=== PATIENT | female | born 1970 | race Hispanic/Latino ===

== ENCOUNTER 2017-02-06 13:57 | Emergency (ER) | payer OTHER, BC ==
[2017-02-06 14:01] VITALS: BMI 47.1
[2017-02-06 14:05] VITALS: BP 116/81; PULSE 99; RESP 18; TEMP 98.1; O2SAT 97
--- NOTE | 2017-02-06 14:37 | ED PDOC ---
Arrival/HPI - General Historian: Patient - History of Present Illness Time/Duration: Prior to Arrival Symptom Onset: Sudden Symptom Course: Improving Quality: Throbbing Severity Level: 4 Context: Work - General Chief Complaint: Finger,Hand,&Wrist Time Seen by Provider: 02/06/17 14:33 - History of Present Illness Narrative History of Present Illness (Text): 02/06/17 14:33 46 F w/PMH sig for HTN controlled with medications evaluated for left 1st digit trauma. Pt reports child in her classroom intentionally cut her finger with the classroom scissors. Pt cleaned wound with water and applied pressure and then dressing to finger with resolution of bleeding. Reports some tingling and pain of digit. No other complaints at this time. PMH: HTN, anxiety on medication PSH: (1996), ovarian cyst excision (2004), D & C & endometrial ablation (2016) All: Sulfa drugs SH: Averages 1 ETOH drink daily, denies tobacco or illicit drug use PMD: [place] (Kavita Arthur) Past Medical History - Provider Review Nursing Documentation Reviewed: Yes - Infectious Disease Hx of Infectious Diseases: None - Tetanus Immunization Tetanus Immunization: >10 years Ago - Cardiac Hx Cardiac Disorders: Yes Hx Hypertension: Yes Hx Mitral Valve Prolapse: Yes - Genitourinary/Gynecological Hx Genitourinary Disorders: Yes Other/Comment: HX: CYST RIGHT OVARY. HX: ABNORMAL UTERINE BLEEDING - Psychiatric Hx Psychophysiologic Disorder: Yes Hx Anxiety: Yes Hx Substance Use: No - Surgical History Hx Section: Yes Hx Dilation and Curettage: Yes Other/Comment: ovarian cyst. endometrial ablation - Anesthesia Hx Anesthesia: Yes Hx Anesthesia Reactions: No Hx Malignant Hyperthermia: No - Suicidal Assessment Feels Threatened In Home Enviroment: No Family/Social History - Physician Review Nursing Documentation Reviewed: Yes Family/Social History: No Known Family HX Smoking Status: Former Smoker Hx Alcohol Use: Yes Frequency of alcohol use: Daily Hx Substance Use: No Hx Substance Use Treatment: No Allergies/Home Meds Allergies/Adverse Reactions: Allergies Sulfa (Sulfonamide Antibiotics) Allergy (Intermediate, Verified 11/17/16 08:57) RASH Home Medications: Home Meds Medication Instructions Recorded Confirmed Metoprolol Succinate 25 mg PO DAILY 07/04/13 02/06/17 Escitalopram [Lexapro] 20 mg PO HS 05/11/15 02/06/17 Alprazolam [Xanax] 0.25 mg PO HS 11/17/16 02/06/17 Lisinopril/Hydrochlorothiazide 1 tab PO DAILY 11/17/16 02/06/17 [Lisinopril-Hctz 20-12.5 mg Tab] Review of Systems - Physician Review All systems were reviewed & negative as marked: Yes - Review of Systems Constitutional: Normal Eyes: Normal ENT: Normal Respiratory: Normal Cardiovascular: Normal Gastrointestinal: Normal Musculoskeletal: Normal Skin: Other (1st digit on left hand with laceration) Neurological: Normal Physical Exam Vital Signs Reviewed: Yes Temperature: Afebrile Blood Pressure: Normal Pulse: Regular Respiratory Rate: Normal Appearance: Positive for: Well-Appearing, Non-Toxic, Comfortable Pain Distress: None Mental Status: Positive for: Alert and Oriented X 3 - Systems Exam Head: Present: Atraumatic, Normocephalic Extroacular Muscles: Present: EOMI Mouth: Present: Moist Mucous Membranes Nose (External): Present: Atraumatic Neck: Present: Normal Range of Motion Respiratory/Chest: Present: Clear to Auscultation, Good Air Exchange. No: Respiratory Distress, Accessory Muscle Use Cardiovascular: Present: Regular Rate and Rhythm, Normal S1, S2. No: Murmurs Abdomen: Present: Normal Bowel Sounds. No: Tenderness, Distention, Peritoneal Signs Upper Extremity: No: Normal Inspection (left 1st digit with well approximated linear lacerations- no bleeding), Cyanosis, Edema Lower Extremity: Present: Normal Inspection. No: Edema Neurological: Present: GCS=15, CN II-XII Intact, Speech Normal Skin: Present: Warm, Dry, Normal Color, Laceration (left 1st finger, well approximated). No: Rashes Psychiatric: Present: Alert, Oriented x 3, Normal Insight, Normal Concentration Vital Signs Temp Pulse Resp BP Pulse Ox 02/06/17 14:05 98.1 F 99 H 18 116/81 97 Medical Decision Making ED Course and Treatment: 02/06/17 14:50 Lacerations well approximated, will apply tissue glue to insure integrity. ( Kavita Arthur) Patient seen and examined with resident Came up with treatment and disposition plan with resident (Jose Eduardo Chopra) - Medication Orders Current Medication Orders: Discontinued Medications Tetanus/Reduced Diphtheria/Acell Pertussis (Boostrix Vaccine Inj) 0.5 ml IM .ONCE ONE Stop: 02/06/17 14:39 Last Admin: 02/06/17 15:04 Dose: 0.5 ml MAR Immunization Data Document 02/06/17 15:04 ME (Rec: 02/06/17 15:05 ME [id number]) Immunization Data Vaccine Lot Number [id number] Vaccine Expiration Date 02/18/19 Route Intramuscular Immunization Units ml Procedure: Wound Repair - Time Performed Time Performed: 14:43 - Time Out Time Out: Side verified, Site verified, Patient ID confirmed - Procedure Procedure: Wound Repair: Dermabond to 1st digit laceration - Consent Obtained Consent obtained: Verbal - Performed by Performed by: Mid-level Provider - Indications Indication(s):: Laceration - Location Location:: Left, Hand Finger:: Left, Index Shape:: Linear Dimensions Length cm: 2cm Depth:: Epidermis - Debris Debris:: None - Complexity Complexity:: Simple (one layer) - Wound repair method [place]:: Tissue glue - Muscle repiar layer closed with Muscle repair layer closed with:: Tetanus ordered - Complications Complications: none - Patient tolerated procedure Patient Tolerated Procedure:: Well Disposition/Present on Arrival - Present on Arrival Any Indicators Present on Arrival: No History of DVT/PE: No History of Uncontrolled Diabetes: No Urinary Catheter: No History of Decub. Ulcer: No History Surgical Site Infection Following: None - Disposition Have Diagnosis and Disposition been Completed?: Yes Disposition Time: 14:49 Patient Plan: Discharge - Disposition Diagnosis: Laceration of finger of left hand Disposition: HOME/ ROUTINE Patient Problems: Current Active Problems Problem Status Onset Laceration of finger of left hand Acute Condition: STABLE Additional Instructions: OK to wash hand/fingers with tissue glue in place. The glue will dissolve overtime. Referrals: PCP,NO [Primary Care Provider] - Follow up with primary Forms: [facility] ([place]), WORK NOTE
[2017-02-06] MEDS ORDERED: TDAP Vaccine 0.5 mL Syr IM ONE (14:38)
== END 2017-02-06 15:30 | disposition home or self-care (01) ==
LOC: ED 13:57
DX: S61.211A Laceration without foreign body of left index finger without damage to nail, initial encounter (principal); W27.2XXA Contact with scissors, initial encounter; Y92.219 Unspecified school as the place of occurrence of the external cause; I10 Essential (primary) hypertension; Z23 Encounter for immunization